=== PATIENT | male | born 1975 | race Caucasian/White ===

== ENCOUNTER 2018-08-27 06:54 | Emergency (ER) | payer BC ==
[2018-08-27] MEDS ORDERED: Sodium Chloride 0.9% 10 ML Syringe FLUSH PRN (07:04)
--- NOTE | 2018-08-27 07:06 | EDM.PDOC ---
ED HPI GENERAL MEDICAL PROBLEM - General Chief Complaint: Eye Problems Stated Complaint: EYE PROBLEM Time Seen by Provider: 08/27/18 07:05 Source of Information: Reports: Patient, RN, RN Notes Reviewed History Limitations: Reports: No Limitations - History of Present Illness INITIAL COMMENTS - FREE TEXT/NARRATIVE: Pt to ER with c/o sudden loss of periphery vision above the right eyebrow. He states he woke up with a slight headache this morning but that is beginning to resolve. He denies any recent illness. States his father had a stroke at age 42 so he was very nervous. Denies any health hx. Onset: Today, Sudden - Related Data Allergies Allergy/AdvReac Type Severity Reaction Status Date / Time No Known Allergies Allergy Verified 08/27/18 06:59 Home Meds: Home Meds . [No Known Home Meds] 08/27/18 [History] Past Medical History Musculoskeletal History: Reports: Back Pain, Chronic Social & Family History - Tobacco Use Smoking Status *Q: Never Smoker Second Hand Smoke Exposure: No - Recreational Drug Use Recreational Drug Use: No ED ROS GENERAL - Review of Systems Review Of Systems: ROS reveals no pertinent complaints other than HPI. ED EXAM GENERAL W FULL EYE - Physical Exam Exam: See Below Exam Limited By: No Limitations General Appearance: Alert, WD/WN, No Apparent Distress Eye Exam: Bilateral Eye: EOMI, Normal Inspection, PERRL (4 brisk) With Correction: No Eyelids: Bilateral: Normal Appearance Conjunctiva & Sclera: Bilateral: Normal Appearance Cornea Exam: Bilateral: Normal Appearance Pupils: Normal Accommodation Pupillary Size: Bilateral: 4 mm Pupillary Reaction: Bilateral: Brisk Ears: Normal External Exam, Hearing Grossly Normal Nose: Normal Inspection Throat/Mouth: Normal Inspection, Normal Voice, No Airway Compromise Head: Atraumatic, Normocephalic Neck: Normal Inspection, Supple, Non-Tender, Full Range of Motion Respiratory/Chest: No Respiratory Distress, Lungs Clear, Normal Breath Sounds, No Accessory Muscle Use, Chest Non-Tender Cardiovascular: Normal Peripheral Pulses, Regular Rate, Rhythm, No Edema, No Gallop, No JVD, No Murmur, No Rub GI/Abdominal: Normal Bowel Sounds, Soft, Non-Tender, No Organomegaly, No Distention, No Abnormal Bruit, No Mass (Male) Exam: Deferred Rectal (Males) Exam: Deferred Back Exam: Normal Inspection, Full Range of Motion, NT Extremities: Normal Inspection, Normal Range of Motion, Non-Tender, Normal Capillary Refill, No Pedal Edema Neurological: Alert, Oriented, CN II-XII Intact, Normal Cognition, Normal Gait, Normal Reflexes, No Motor/Sensory Deficits Psychiatric: Normal Affect, Normal Mood, Anxious Skin Exam: Warm, Dry, Intact, Normal Color, No Rash Lymphatic: No Adenopathy Course - Vital Signs Last Recorded V/S: Last Vital Signs Temp 96.7 F 08/27/18 06:56 Pulse 63 08/27/18 06:56 Resp 18 08/27/18 06:56 BP 134/81 08/27/18 06:56 Pulse Ox 100 08/27/18 06:56 - Orders/Labs/Meds Orders: Active Orders 24 hr Category Date Time Status EKG Documentation Completion [RC] STAT Care 08/27/18 07:04 Active Peripheral IV Care [RC] . DIRECTED Care 08/27/18 07:05 Active Peripheral IV Insertion Adult [OM.PC] Stat Oth 08/27/18 07:04 Ordered Labs: Laboratory Tests 08/27/18 08/27/18 08/27/18 Range/Units 07:08 07:08 07:08 WBC 5.9 (5.0-10.0) 10^3/uL RBC 5.09 (4.6-6.2) 10^6/uL Hgb 16.6 (14.0-18.0) g/dL Hct 47.8 (40.0-54.0) % MCV 93.9 (80-100) fL MCH 32.6 (27.0-34.0) pg MCHC 34.7 (33.0-35.0) g/dL Plt Count 150 (150-450) 10^3/uL Neut % (Auto) 57.4 (42.2-75.2) % Lymph % (Auto) 32.3 (20.5-50.1) % Tama % (Auto) 7.8 (2-8) % Eos % (Auto) 2.0 (1.0-3.0) % Baso % (Auto) 0.5 (0.0-1.0) % PT 9.6 (9.0-12.0) SEC INR 1.0 (0.9-1.2) Sodium 137 (135-145) mmol/L Potassium 4.1 (3.6-5.0) mmol/L Chloride 103 (101-111) mmol/L Carbon Dioxide 24.0 (21.0-31.0) mmol/L Anion Gap 14.1 BUN 28 H (7-18) mg/dL Creatinine 1.1 (0.6-1.3) mg/dL Est Cr Clr Drug Dosing 95.84 mL/min Estimated GFR (MDRD) > 60 BUN/Creatinine Ratio 25.45 Glucose 106 H (74-105) mg/dL Calcium 8.9 (8.4-10.2) mg/dl Total Bilirubin 0.7 (0.2-1.0) mg/dL AST 32 (10-42) IU/L ALT 39 (10-60) IU/L Alkaline Phosphatase 67 (42-121) IU/L Total Protein 7.0 (6.7-8.2) g/dl Albumin 4.2 (3.2-5.5) g/dl Globulin 2.8 Albumin/Globulin Ratio 1.50 Urine Color (YELLOW) Urine Appearance (CLEAR) Urine pH (5.0-9.0) Ur Specific Gordon (1.005-1.030) Urine Protein (NEGATIVE) Urine Glucose (UA) (NEGATIVE) Urine Ketones (NEGATIVE) Urine Occult Blood (NEGATIVE) Urine Nitrite (NEGATIVE) Urine Bilirubin (NEGATIVE) Urine Urobilinogen (0.2-1.0) mg/dL Ur Leukocyte Esterase (NEGATIVE) Urine Opiates Screen (NEGATIVE) Ur Oxycodone Screen (NEGATIVE) Urine Methadone Screen (NEGATIVE) Ur Barbiturates Screen (NEGATIVE) U Tricyclic Antidepress (NEGATIVE) Ur Phencyclidine Scrn (NEGATIVE) Ur Amphetamine Screen (NEGATIVE) U Methamphetamines Scrn (NEGATIVE) Urine MDMA Screen (NEGATIVE) U Benzodiazepines Scrn (NEGATIVE) Urine Cocaine Screen (NEGATIVE) U Marijuana (THC) Screen (NEGATIVE) Ethyl Alcohol < 5 mg/dL 08/27/18 08/27/18 Range/Units 07:15 07:15 WBC (5.0-10.0) 10^3/uL RBC (4.6-6.2) 10^6/uL Hgb (14.0-18.0) g/dL Hct (40.0-54.0) % MCV (80-100) fL MCH (27.0-34.0) pg MCHC (33.0-35.0) g/dL Plt Count (150-450) 10^3/uL Neut % (Auto) (42.2-75.2) % Lymph % (Auto) (20.5-50.1) % Tama % (Auto) (2-8) % Eos % (Auto) (1.0-3.0) % Baso % (Auto) (0.0-1.0) % PT (9.0-12.0) SEC INR (0.9-1.2) Sodium (135-145) mmol/L Potassium (3.6-5.0) mmol/L Chloride (101-111) mmol/L Carbon Dioxide (21.0-31.0) mmol/L Anion Gap BUN (7-18) mg/dL Creatinine (0.6-1.3) mg/dL Est Cr Clr Drug Dosing mL/min Estimated GFR (MDRD) BUN/Creatinine Ratio Glucose (74-105) mg/dL Calcium (8.4-10.2) mg/dl Total Bilirubin (0.2-1.0) mg/dL AST (10-42) IU/L ALT (10-60) IU/L Alkaline Phosphatase (42-121) IU/L Total Protein (6.7-8.2) g/dl Albumin (3.2-5.5) g/dl Globulin Albumin/Globulin Ratio Urine Color Yellow (YELLOW) Urine Appearance Clear (CLEAR) Urine pH 5.5 (5.0-9.0) Ur Specific Gordon 1.025 (1.005-1.030) Urine Protein Negative (NEGATIVE) Urine Glucose (UA) Negative (NEGATIVE) Urine Ketones Negative (NEGATIVE) Urine Occult Blood Negative (NEGATIVE) Urine Nitrite Negative (NEGATIVE) Urine Bilirubin Negative (NEGATIVE) Urine Urobilinogen 0.2 (0.2-1.0) mg/dL Ur Leukocyte Esterase Negative (NEGATIVE) Urine Opiates Screen Negative (NEGATIVE) Ur Oxycodone Screen Negative (NEGATIVE) Urine Methadone Screen Negative (NEGATIVE) Ur Barbiturates Screen Negative (NEGATIVE) U Tricyclic Antidepress Negative (NEGATIVE) Ur Phencyclidine Scrn Negative (NEGATIVE) Ur Amphetamine Screen Negative (NEGATIVE) U Methamphetamines Scrn Negative (NEGATIVE) Urine MDMA Screen Negative (NEGATIVE) U Benzodiazepines Scrn Negative (NEGATIVE) Urine Cocaine Screen Negative (NEGATIVE) U Marijuana (THC) Screen Negative (NEGATIVE) Ethyl Alcohol mg/dL Meds: Medications Discontinued Medications Generic Name Dose Route Start Last Admin Trade Name Lucero PRN Reason Stop Dose Admin Sodium Chloride 10 ml 08/27/18 07:04 08/27/18 07:10 Saline Flush FLUSH 10 ml ASDIRECTED PRN Administration Keep Vein Open - Radiology Interpretation Free Text/Narrative:: Head CT: FINDINGS: Brain: Normal. No hemorrhage. No significant white matter disease. No edema. Ventricles: Normal. No ventriculomegaly. Bones/joints: Unremarkable. No acute fracture. Sinuses: Visualized sinuses are unremarkable. No acute sinusitis. Mastoid air cells: Visualized mastoid air cells are unremarkable. No mastoid effusion. Soft tissues: Unremarkable. IMPRESSION: No acute intracranial abnormality. ASSESSMENT: ASPECTS ([facility]anci Stroke Program Early CT Score) is 10. Thank you for allowing us to participate in the care of your patient. Dictated and Authenticated by: Everett Dawkins MD 08/27/2018 7:30 AM Central Time ([place] & [place]) See rad report - Re-Assessments/Exams Free Text/Narrative Re-Assessment/Exam: 08/27/18 15:44 Discussed patient case with Dr. Donaldson. She states she feels this may be specific to the eye. I then discussed the patient case with Dr. Montero who states she feels this is a visual aura. She states the patient should follow up with integration technician or opthomology today to rule out retinal bleed, etc. She states she would be more than willing to see the patient if he prefers to drive to [place]. 08/27/18 16:04 Departure - Departure Time of Disposition: 07:53 Disposition: Home, Self-Care 01 Condition: Fair Clinical Impression: Visual aura - Discharge Information *PRESCRIPTION DRUG MONITORING PROGRAM REVIEWED*: No *COPY OF PRESCRIPTION DRUG MONITORING REPORT IN PATIENT JOSE: No Instructions: Visual Disturbances Referrals: PCP,None [Primary Care Provider] - Forms: ED Department Discharge Additional Instructions: Follow up with integration technician or opthamology today Drink plenty of water - My Orders Last 24 Hours: My Active Orders 08/27/18 07:04 EKG Documentation Completion [RC] STAT Peripheral IV Insertion Adult [OM.PC] Stat 08/27/18 07:05 Peripheral IV Care [RC] . DIRECTED - Assessment/Plan Last 24 Hours: My Active Orders 08/27/18 07:04 EKG Documentation Completion [RC] STAT Peripheral IV Insertion Adult [OM.PC] Stat 08/27/18 07:05 Peripheral IV Care [RC] . DIRECTED
[2018-08-27 07:35] LABS: ANION GAP 14.1; CHLORIDE,CL 103 mmol/L (101-111); SODIUM,NA 137 mmol/L (135-145)
== END 2018-08-27 08:05 | disposition home or self-care (01) ==
LOC: DL.ED 06:54
DX: H53.8 Other visual disturbances (principal)
CPT/HCPCS: 36415; 70450; 80053; 80305; 81003; 85025; 85610; 93005; 99284; G0480